=== PATIENT | male | born 1955 | race Caucasian/White ===

== ENCOUNTER 2016-09-04 21:55 | Emergency (ER) | payer MEDICAID, OTHER ==
[~2016-09-04] VITALS: Ht 167.6 cm; Wt 65.8 kg
[~2016-09-04 21:55] MED LIST: ASPIR-LOW81 MG PO; DIABETA2.5 MG PO; DIPHENHYDRAMINE25 M1 ORAL; GLUCOPHAGE500 MG PO; PREDNISONE20 MG ORAL; RANITIDINE HCL150 MG ORAL
[2016-09-04] MEDS ORDERED: LORazepam Inj 2mg/ml 1ml IV ONE ×2 (22:30→23:45)
[2016-09-04 22:48] LABS: BASOPHILS % (AUTO) 1.1 % (0.0-2.0); EOSINOPHILS % (AUTO) 0.5 % (0.0-3.0); LYMPHOCYTES % (AUTO) 11.4 % (20.0-45.0); MEAN CORPUSCULAR HGB CONC 33.1 G/DL (32.0-36.0); MEAN CORPUSCULAR VOLUME 106 FL (80-99); MEAN PLATELET VOLUME 6.9 FL (6.5-10.1); MONOCYTES % (AUTO) 7.4 % (1.0-10.0); NEUTROPHILS % (AUTO) 79.6 % (45.0-75.0); PLATELET COUNT 255 K/UL (150-450); RED BLOOD COUNT 4.31 M/UL (4.70-6.10); RED CELL DISTRIBUTION WIDTH 11.8 % (11.6-14.8); WHITE BLOOD COUNT 7.1 K/UL (4.8-10.8)
--- NOTE | 2016-09-04 22:48 | Emergency Room Report ---
History of Present Illness General Chief Complaint: Vomiting Source: Patient Present Illness HPI Is a 61-year-old male with history of diabetes. He presents with chief complaint of vomiting and shakiness. Initially he denied being an alcoholic. Said he only drinks 2 cups at night to help with sleep. Later he did admit that he drinks 4-5 coffee cup size of vodka every night. He did not drink for over 24 hours. His been shaky all day. Multiple episode vomiting. Unable to keep anything down. Call 911. Per EMS, he was in SVT with heart rate in the 160 to 180s. He vomited and heart rate came down. Patient denies any chest pain or palpitation. Never had this problem before. Has not taken his medication today. His blood pressure was also very high per EMS. Allergies: Coded Allergies: CODEINE (Verified Allergy, Unknown, 07/08/12) Patient History Past Medical History: see triage record, old chart reviewed, DM Past Surgical History: other Pertinent Family History: none Social History: Reports: alcohol use Immunizations: other Reviewed Nursing Documentation: PMH: Agreed, PSxH: Agreed Nursing Documentation-PMH Hx Cardiac Problems: Yes Hx Hypertension: Yes Hx Pacemaker: No - HYPERCHOLESTEROLEMIA Hx Diabetes: Yes Review of Systems Eye: Denies: blurred vision, eye pain ENT: Denies: ear pain, nose congestion, throat swelling Respiratory: Denies: cough, shortness of breath Cardiovascular: Reports: palpitations, Denies: chest pain Gastrointestinal: Reports: nausea, vomiting, Denies: abdominal pain, diarrhea Musculoskeletal: Denies: back pain, joint pain Skin: Denies: rash Neurological: Denies: headache, numbness Endocrine: Denies: increased thirst, increased urine Hematologic/Lymphatic: Denies: easy bruising All Other Systems: negative except mentioned in HPI Physical Exam Vital Signs Date Time Temp Pulse Resp B/P Pulse Ox O2 Delivery O2 Flow Rate FiO2 09/04/16 21:58 98.1 122 21 205/106 98 Room Air vitals with htn and tachycardia Sp02 EP Interpretation: reviewed, normal General Appearance: well appearing, no apparent distress, alert Head: normocephalic, atraumatic Eyes: bilateral eye EOMI, bilateral eye PERRL ENT: hearing grossly normal, normal pharynx Neck: full range of motion, supple, no meningismus Respiratory: chest non-tender, lungs clear, normal breath sounds Cardiovascular #1: regular rate, rhythm, no murmur Gastrointestinal: normal bowel sounds, non tender, no mass, no organomegaly, no bruit, non-distended Musculoskeletal: back normal, gait/station normal, normal range of motion Neurologic: alert, oriented x3, other - tremulous Psychiatric: mood/affect normal Skin: warm/dry, other - pt has tatoos all over his body and including face and forehead. Procedures Critical Care Time Critical Care Time Critical care is mandated in this patient who presented with severe alcohol withdrawal syndrome.. Patient require my urgent intervention to attenuate the risks of metabolic collapse which may lead to cardiovascular collapse and . Critical care time is 35 minutes excluding any reportable procedure. Critical care time included evaluation, multiple reevaluation, looking at old charts, interpreting laboratory and diagnostic data, discussing case with patient and family and consultants, and charting. Medical Decision Making Diagnostic Impression: Primary Impression: Alcohol withdrawal syndrome Qualified Codes: F10.230 - Alcohol dependence with withdrawal, uncomplicated Additional Impressions: Hypertension Qualified Codes: I10 - Essential (primary) hypertension Arrhythmia, atrial Hyperglycemia due to type 2 diabetes mellitus Qualified Codes: E11.65 - Type 2 diabetes mellitus with hyperglycemia Alcoholism /alcohol abuse ER Course patient presents with alcohol withdrawal syndrome. His arrhythmia is most likely atrial fibrillation. Heart rate improved to sinus tachycardia after Cardizem. I gave him Ativan and Librium. He is much more comfortable now. Blood pressure better. He stable for transfer. If not, will admit here. EKG Diagnostic Results Rate: normal, tachycardiac Rhythm: NSR ST Segments: no acute changes Rhythm Strip Diag. Results EP Interpretation: yes Rate: 100 Rhythm: NSR, no PVC's, no ectopy Chest X-Ray Diagnostic Results EP Interpretation: Yes Findings: no consolidation, no effusion, no pneumothorax, no acute cardiopulmonary disease Number of Views: 1 Last Vital Signs Date Time Temp Pulse Resp B/P Pulse Ox O2 Delivery O2 Flow Rate FiO2 09/04/16 21:58 98.1 122 21 205/106 98 Room Air Status: improved Disposition: XFER SHT-TRM HOSP Condition: Serious Referrals: [facility],REFERRING (PCP) COCO MCKEON M.D. Sep 04, 2016 22:48
[2016-09-04 22:58] LABS: PROTHROMBIN TIME 9.9 SEC (9.30-11.50)
[2016-09-04 23:03] LABS: TROPONIN I < 0.30 ng/mL (<=0.30)
[2016-09-04 23:07] LABS: ALANINE AMINOTRANSFERASE 66 U/L (3-41); ALBUMIN/GLOBULIN RATIO 1.6 (1.0-2.7); ANION GAP 21 (5-15); ASPARTATE AMINO TRANSFERASE 48 U/L (5-40); CALCIUM 10.1 mg/dL (8.6-10.2); CARBON DIOXIDE 26 mEQ/L (20-30); CHLORIDE 95 mEQ/L (98-107); CREATININE 0.8 mg/dL (0.7-1.2); GLOMERULAR FILTRATION RATE > 60 mL/min (>60); HEMOLYSIS 7; POTASSIUM 3.9 mEQ/L (3.4-4.9); SODIUM 142 mEQ/L (135-145); TOTAL PROTEIN 7.9 g/dL (6.6-8.7)
[2016-09-04 23:17] LABS: CKMB 2.6 ng/mL (< 6.7)
[2016-09-04 23:20] VITALS: BP 147/104
[2016-09-04 23:23] VITALS: BP 195/101
[2016-09-04] MEDS ORDERED: Diltiazem 25mg/5ml IV ONE (23:30)
[2016-09-04] MEDS ORDERED: chlordiazePOXIDE 25mg Cap ORAL ONE (23:45)
[2016-09-04 23:51] LABS: APPEARANCE,URINE CLEAR; KETONES,URINE 4+ (NEGATIVE); LEUKOCYTE ESTERASE ,URINE NEGATIVE (NEGATIVE); NITRITE,URINE NEGATIVE (NEGATIVE); PH,URINE 7 (4.5-8.0); PROTEIN,URINE 3+ (NEGATIVE); UROBILINOGEN,URINE NORMAL MG/DL (0.0-1.0)
[2016-09-05 00:11] LABS: BACTERIA,URINE OCCASIONAL /HPF; SQUAMOUS EPITHELIAL CELL,UR OCCASIONAL /LPF (NONE/OCC); WBC,URINE 0-2 /HPF (0 - 0)
[2016-09-05 00:53] VITALS: BP 138/80
[2016-09-05 02:13] VITALS: BP 153/85
[2016-09-05] MEDS ORDERED: ZOCOR20 MG ORAL (02:17)
[2016-09-05 02:32] VITALS: BP 153/85
--- NOTE | 2016-09-05 13:46 | Diagnostic Imaging Report ---
Indication: Chest pain Technique: One view of the chest Comparison: none Findings: Lungs and pleural spaces are clear. Heart size is normal. Impression: No acute process
--- NOTE | 2016-09-07 15:05 | Cardiology Report ---
APPROVED REPORT EKG Measurement Heart [id number] Sinus tachycardia Otherwise normal ECG
--- NOTE | 2016-09-07 15:05 | Cardiology Report ---
APPROVED REPORT EKG Measurement Heart [id number] [place] [id number] Sinus tachycardia Otherwise normal ECG
--- NOTE | 2016-09-07 15:05 | Cardiology Report ---
APPROVED REPORT EKG Measurement Heart [id number] [place] [id number] Sinus tachycardia Septal infarct, age undetermined Abnormal ECG
== END 2016-09-05 02:34 | disposition short-term general hospital (02) ==
LOC: EDBD 21:55 → EMR 22:21
DX: F10.239 Alcohol dependence with withdrawal, unspecified (principal); I10 Essential (primary) hypertension; E11.9 Type 2 diabetes mellitus without complications; E78.00 Pure hypercholesterolemia, unspecified; R11.2 Nausea with vomiting, unspecified; I49.8 Other specified cardiac arrhythmias; Z88.6 Allergy status to analgesic agent
CPT/HCPCS: 36415; 71010; 80053; 80300; 81003; 82550; 82553; 83880; 84484; 85025; 85610; 85730; 93005; 96360; 96374; 96375; 99291; G0480; 80329